=== PATIENT | female | born 1970 | race Caucasian/White ===

== ENCOUNTER → 2018-08-07 14:00 | Outpatient (CLI) | payer OTHER, SELFPAY ==
--- NOTE | 2018-08-07 | DI.MG.S_ITS ---
BILATERAL DIGITAL SCREENING MAMMOGRAM 3D/2D WITH CAD WITH AUGMENTATION: 08/07/2018 CLINICAL: Routine screening. Comparison is made to exams dated: 03/18/2016 mammogram - [facility] and 12/27/2012 mammogram - [facility]. The tissue of both breasts is extremely dense, which lowers the sensitivity of mammography. Current study was also evaluated with a Computer Aided Detection (CAD) system. Bilateral breast implants are stable. No significant masses, calcifications, or other findings are seen in either breast. There has been no significant interval change. IMPRESSION: NEGATIVE There is no mammographic evidence of malignancy. A 1 year screening mammogram is recommended. This exam was interpreted at Station ID: [id number]. NOTE: For mammograms, a report in lay terms will be sent to the patient. Approximately 15% of breast malignancies will not be visualized mammographically. In the management of a palpable breast mass, a negative mammogram must not discourage biopsy of a clinically suspicious lesion. Electronically Signed By: Chandan baez/harpreet:08/07/2018 18:48:25 letter sent: Normal Exam ACR BI-RADS Category 1: Negative [id number]
== END ==
PROVIDERS: PCP Family Medicine; Visit Provider Family Medicine
DX: Z12.31 Encounter for screening mammogram for malignant neoplasm of breast (principal)
CPT/HCPCS: 77063; 77067

== ENCOUNTER 2021-01-13 17:47 | Emergency (ER) | payer OTHER, SELFPAY ==
[2021-01-13] VITALS (14 sets, daily range): BP systolic 97–139; BP diastolic 63–85; PULSE 65–81; RESP 18–26; TEMP 37.3; O2SAT 96–100; BMI 19.9
--- NOTE | 2021-01-13 18:01 | DI.RAD.S_ITS ---
PROCEDURE: XR CHEST 1V INDICATIONS: chest pain TECHNIQUE: One view of the chest was acquired. COMPARISON: None. FINDINGS: Surgical changes and devices: None. Lungs and pleura: Lungs are clear. No pleural effusions or pneumothorax. Mediastinum: Mediastinal contours appear normal. Heart size is normal. Bones and chest wall: No suspicious bony lesions. Overlying soft tissues appear unremarkable. IMPRESSION: No acute cardiopulmonary abnormality. Dictated by: Devon Aceves M.D. on 01/13/2021 at 18:32 Approved by: Devon Aceves M.D. on 01/13/2021 at 18:32
[2021-01-13 18:34] LABS: Add Manual Diff / Slide Review NO; Basophils Absolute Auto 0 /uL (0-100); Basophils Percent Auto 0.7 % (0-2); Eosinophils Absolute Auto 200 /uL (0-450); Hematocrit 39.6 % (36-46); Hemoglobin 13.7 g/dL (12.0-16.0); Lymphocytes Absolute Auto 1200 /uL (1100-4500); Lymphocytes Percent Auto 22.5 % (25-40); Mean Corpuscular HGB Conc 34.6 % (30-36); Mean Corpuscular Hemoglobin 34.3 PG (26-34); Monocytes Absolute Auto 300 /uL (0-900); Monocytes Percent Auto 5.7 % (3-14); Neutrophils Absolute Auto 3800 /uL (1500-7000); Neutrophils Percent Auto 68.1 % (50-75); Platelet Count 211 X10^3/uL (150-400); Red Blood Cell Count 4.01 X10^6/uL (4.0-5.2); Red Cell Distribution Width 12.6 % (11.6-14.8); White Blood Cell Count 5.5 X10^3/uL (4.5-11.0)
[2021-01-13 18:47] LABS: Alanine Aminotransferase 39 IU/L (<35); Albumin 4.2 g/dL (3.5-5.0); Albumin Globulin Ratio 1.4 (1.0-2.8); Alkaline Phosphatase 50 U/L (38-126); Aspartate Aminotransferase 32 IU/L (14-36); BUN Creatinine Ratio 15.3 (6-22); Bilirubin Total 0.7 mg/dL (0.2-1.3); Blood Urea Nitrogen 11 mg/dL (7-17); Carbon Dioxide 29 mmol/L (22-32); Chloride 104 mmol/L (98-107); Creatine Kinase 70 U/L (30-135); Estimated Glomerular Filt Rate > 60.0 mL/min (>60); Globulin 3.1 g/dL (1.7-4.1); Glucose 101 mg/dL (70-100); HEMOLYSIS < 15 (0-50); Lipase 160 U/L (23-300); Potassium 3.5 mmol/L (3.4-5.1); Sodium 137 mmol/L (137-145); Total Protein 7.3 g/dL (6.3-8.2)
[2021-01-13 18:53] LABS: COVID19 -Nasal RAPID Negative (Negative)
[2021-01-13 18:59] LABS: Troponin I < 0.012 ng/mL (0.01-0.034)
[2021-01-13] MEDS: IBUPROFEN 400 MG TABLET 600 MG PO (19:05)
[2021-01-13 19:19] LABS: C-Reactive Protein Quant < 0.5 mg/dL (<1.0)
[2021-01-13 19:34] LABS: Erythrocyte Sedimentation Rate 7 MM/HR (0-20)
[2021-01-13 19:51] LABS: D Dimer 4011 ng/mL (<230)
--- NOTE | 2021-01-13 20:00 | DI.CT.S_ITS ---
PROCEDURE: CT ANGIO CHEST PE PROTOCOL INDICATIONS: D-dimer 4011, ?PE TECHNIQUE: After the administration of intravenous contrast, 2 mm thick sections acquired from the pulmonary apices to the posterior costophrenic angles. 3-dimensional maximum intensity projection (MIP) coronal and sagittal reformats were then acquired through the thorax. For radiation dose reduction, the following was used: automated exposure control, adjustment of mA and/or kV according to patient size. COMPARISON: [facility], CR, XR CHEST 1V, 01/13/2021, 18:21. FINDINGS: Image quality: Excellent. Pulmonary arteries: Pulmonary arteries are normal in size, and demonstrate no intraluminal filling defects to suggest central pulmonary embolism. Lungs and pleura: There is mild biapical pleural parenchymal scarring. No acute pulmonary consolidation is seen. No pleural effusions or pneumothorax. Central and peripheral airways are patent. Mediastinum: Heart size is normal, without pericardial effusion. No mediastinal or hilar adenopathy. Thoracic aorta is normal in caliber and enhancement. Esophagus is normal in caliber, without hiatal hernia. Bones and chest wall: Bilateral breast implants are present. No suspicious bony lesions. Ribs and thoracic spine appear intact throughout. A few hypodense nodules are seen in both lobes of the thyroid and there is a single coarse calcification. No dedicated follow-up imaging is recommended based on ACR white paper guidelines. No axillary or supraclavicular adenopathy. Abdomen: Visualized upper abdominal solid organs appear normal in the early arterial phase of enhancement. IMPRESSION: No acute pulmonary embolus. No acute abnormality is seen in the chest. Dictated by: Devon Aceves M.D. on 01/13/2021 at 21:24 Approved by: Devon Aceves M.D. on 01/13/2021 at 21:28
--- NOTE | 2021-01-13 20:06 | ED.CHESTPAIN ---
HPI - Chest Pain <Char Saleh PA-C - Last Filed: 01/13/21 20:30> General Chief Complaint: Chest Pain Stated Complaint: sharp chest pain, difficulty breathing Time Seen by Provider: 01/13/21 18:40 Source: patient and family Mode of arrival: Ambulatory Limitations: no limitations History of Present Illness HPI narrative: 50-year-old female with no reported past medical history presents to the ED with 1 day of pleuritic left-sided chest pain. Patient states that her left-sided chest pain started about 2:30 this afternoon very suddenly. Pain is exacerbated by movement and by inspiration. Pain does not radiate. Describes pain as sharp. Endorses plane travel from [place] to [place] yesterday. Denies leg swelling, redness. Denies prior history of DVTs, denies taking exogenous estrogen. Patient is not yet menopausal. Denies fever, chills, shortness of breath, nausea, vomiting, abdominal pain, lightheadedness, dizziness, syncope, dysuria. Related Data Previous Rx's Medication Instructions Recorded oxycodone-acetaminophen 5 mg-325 1 tab PO Q6H PRN #15 tab 01/13/21 mg tablet Allergies Allergy/AdvReac Type Severity Reaction Status Date / Time No Known Drug Allergies Allergy Verified 01/13/21 17:52 Review of Systems <Char Saleh PA-C - Last Filed: 01/13/21 20:30> Constitutional Constitutional: Denies chills, Denies fatigue, Denies fever(s), Denies frequent falls, Denies lethargy and Denies weakness Eyes Eyes: Denies change in vision, Denies eye discharge, Denies irritation and Denies loss of vision ENT Ears, Nose, Mouth, and Throat: Denies change in voice, Denies dizziness, Denies neck pain, Denies sore throat and Denies throat swelling Cardiovascular Cardiovascular: Reports chest pain, Denies irregular heart rhythm, Denies lightheadedness, Denies palpitations, Denies dyspnea, Denies dyspnea on exertion and Denies orthopnea Comments: Chest pain that is left-sided, pleuritic Respiratory Respiratory: Denies cough, Denies dyspnea, Denies dyspnea on exertion and Denies wheezing Gastrointestinal Gastrointestinal: Denies abdominal pain, Denies change in bowel habits, Denies diarrhea, Denies nausea and Denies vomiting Musculoskeletal Musculoskeletal: Denies neck pain and Denies numbness Comments: No leg swelling, pain, redness Integumentary/Breasts Skin/Breast: Denies pruritus, Denies erythema, Denies rash and Denies wounds Neurologic Neurologic: Denies behavioral changes, Denies confusion, Denies dizziness, Denies frequent falls, Denies loss of vision, Denies numbness and Denies weakness Psychiatric Psychiatric: Denies anxiety, Denies behavioral changes, Denies confusion, Denies depression, Denies homicidal ideation and Denies suicidal ideation Endocrine Endocrine: Denies fatigue, Denies flushing and Denies palpitations Hematologic/Lymphatic Hematologic/Lymphatic: Denies easy bruising Allergic/Immunologic Allergic/Immunologic: Denies urticaria, Denies throat swelling and Denies wheezing Patient History <Char Saleh PA-C - Last Filed: 01/13/21 20:30> Surgical History History of breast augmentation Status post arthroscopy Status post laparoscopic cholecystectomy Family History Father Age: 74 Early onset Alzheimer's disease with behavioral disturbance Grandmother Cancer Grandfather Diabetes mellitus Social History Smoking Status: Never smoker Smoking Status: Never smoker Substance Use Type: does not use Exam <Char Saleh PA-C - Last Filed: 01/13/21 20:30> Initial Vital Signs Initial Vital Signs: Vital Signs Temperature 99.1 F 01/13/21 17:53 Pulse Rate 81 01/13/21 17:53 Respiratory Rate 18 01/13/21 17:53 Blood Pressure 139/85 01/13/21 17:53 Pulse Oximetry 100 01/13/21 17:53 Const General: cooperative HENMT Head: normocephalic and atraumatic Ears: external ears normal and TM's normal bilaterally Nose: external nose normal and No nasal discharge Face and sinus: sinuses nontender, face symmetric, no sinus tenderness and No dry mucous membranes Mouth: oral mucosae normal and moist mucous membranes Teeth and gingiva: dentition normal Throat: tonsils normal and uvula midline Eyes General: appearance normal, both eyes and all related structures Eyelids: eyelids normal Conjunctivae: conjunctivae normal Sclera: sclerae normal Pupils: PERRL EOM: EOM intact bilaterally Neck Neck: normal visual inspection, trachea midline, No lymphadenopathy, No midline deformity and No JVD Lymphatic: No lymphedema Chest Chest: normal inspection of the chest Resp Effort & Inspection: normal respiratory effort, able to speak in complete sentences, no respiratory distress and no use of accessory muscles Auscultation: clear to auscultation bilaterally, no rales, no rhonchi and no wheezes Cardio Rate: regular rate Rhythm: regular rhythm Heart Sounds: no click, no gallops, no murmurs and no rubs Pulses: normal peripheral pulses Other: Left-sided chest wall tender to palpation. No signs of trauma, bruising. GI Inspection: non-distended Palpation: soft, no hepatosplenomegaly, No guarding, No pulsatile mass and No tender Auscultation: normal bowel sounds Back/Spine/Pelvis Back: No CVA tenderness Cervical Spine: cervical ROM normal and No pain with cervical ROM Thoracic/Lumbar Spine: thoracic and lumbar spine normal to inspection Skin General: no rashes or lesions noted, No jaundice and No petechiae Neuro General: patient alert, patient oriented x3, gait normal and no focal motor deficits Speech: speech normal Extrem General: full ROM, no clubbing, cyanosis or edema, no pedal edema and no calf tenderness Psych Appearance: well kempt Mental Status: mental status grossly normal Attitude: cooperative Thought Content: normal and suicidality Judgment: judgment good <Yashira Dubois MD - Last Filed: 01/13/21 23:08> Initial Vital Signs Initial Vital Signs: Vital Signs Temperature 99.1 F 01/13/21 17:53 Pulse Rate 81 01/13/21 17:53 Respiratory Rate 18 01/13/21 17:53 Blood Pressure 139/85 01/13/21 17:53 Pulse Oximetry 100 01/13/21 17:53 Course <Char Saleh PA-C - Last Filed: 01/13/21 20:30> Course Course Narrative: D-dimer elevated to 4011. CT PE ordered. Patient is stable, SpO2 99% on room air Orders Ordered: ED Orders 01/13/21 18:01 XR chest 1V Stat EKG-12 Lead Stat 01/13/21 18:25 C-Reactive Protein Quant Stat Complete Blood Count AUTO DIFF Stat Comprehensive Metabolic Panel Stat Erythrocyte Sedimentation Rate Stat Lipase Stat Troponin & CK Cardiac Panel Stat 01/13/21 18:30 COVID19 -Nasal swab/Pre-Proc Stat 01/13/21 19:15 D Dimer Stat 01/13/21 20:00 CT angio chest PE protocol Stat Discontinued Medications Ibuprofen (Ibuprofen 400 Mg Tablet) 600 mg PO NOW ONE Stop: 01/13/21 18:54 Last Admin: 01/13/21 19:05 Dose: 600 mg Documented by: GLADIS Morphine Sulfate (Morphine 2 Mg/Ml Inj) 4 mg IV NOW ONE Stop: 01/13/21 20:27 Last Admin: 01/13/21 20:50 Dose: 4 mg Documented by: GLADIS Vital Signs Vital signs: Vital Signs - 8 hr 01/13/21 17:53 01/13/21 18:36 01/13/21 18:44 Temperature 99.1 F Pulse Rate 81 71 71 Respiratory Rate 18 21 24 Blood Pressure 139/85 105/68 105/68 Pulse Oximetry 100 100 100 01/13/21 19:00 01/13/21 19:30 01/13/21 20:00 Temperature Pulse Rate 74 70 67 Respiratory Rate 26 H 20 18 Blood Pressure 114/74 100/66 99/67 Pulse Oximetry 100 100 100 <Yashira Dubois MD - Last Filed: 01/13/21 23:08> Orders Ordered: ED Orders 01/13/21 18:01 XR chest 1V Stat EKG-12 Lead Stat 01/13/21 18:25 C-Reactive Protein Quant Stat Complete Blood Count AUTO DIFF Stat Comprehensive Metabolic Panel Stat Erythrocyte Sedimentation Rate Stat Lipase Stat Troponin & CK Cardiac Panel Stat 01/13/21 18:30 COVID19 -Nasal swab/Pre-Proc Stat 01/13/21 19:15 D Dimer Stat 01/13/21 20:00 CT angio chest PE protocol Stat Discontinued Medications Ibuprofen (Ibuprofen 400 Mg Tablet) 600 mg PO NOW ONE Stop: 01/13/21 18:54 Last Admin: 01/13/21 19:05 Dose: 600 mg Documented by: GLADIS Morphine Sulfate (Morphine 2 Mg/Ml Inj) 4 mg IV NOW ONE Stop: 01/13/21 20:27 Last Admin: 01/13/21 20:50 Dose: 4 mg Documented by: GLADIS Vital Signs Vital signs: Vital Signs - 8 hr 01/13/21 17:53 01/13/21 18:36 01/13/21 18:44 Temperature 99.1 F Pulse Rate 81 71 71 Respiratory Rate 18 21 24 Blood Pressure 139/85 105/68 105/68 Pulse Oximetry 100 100 100 01/13/21 19:00 01/13/21 19:30 01/13/21 20:00 Temperature Pulse Rate 74 70 67 Respiratory Rate 26 H 20 18 Blood Pressure 114/74 100/66 99/67 Pulse Oximetry 100 100 100 MDM - Chest Pain <Char Saleh PA-C - Last Filed: 01/13/21 20:30> Lab Data Lab results narrative: D-dimer elevated. Trop normal. all other labs WNL. Result diagrams: 01/13/21 18:25 01/13/21 18:25 Labs: Lab Results 01/13/21 01/13/21 01/13/21 Range/Units 18:25 18:25 18:25 WBC 5.5 (4.5-11.0) X10^3/uL RBC 4.01 (4.0-5.2) X10^6/uL Hgb 13.7 (12.0-16.0) g/dL Hct 39.6 (36-46) % MCV 99.0 (80-100) fL MCH 34.3 H (26-34) PG MCHC 34.6 (30-36) % RDW 12.6 (11.6-14.8) % Plt Count 211 (150-400) X10^3/uL Neut % (Auto) 68.1 (50-75) % Lymph % (Auto) 22.5 L (25-40) % [place] % (Auto) 5.7 (3-14) % Eos % (Auto) 3.0 (2-4) % Baso % (Auto) 0.7 (0-2) % Neut # (Auto) 3800 (1193-9958) /uL Lymph # (Auto) 1200 (2954-0895) /uL [place] # (Auto) 300 (0-900) /uL Eos # (Auto) 200 (0-450) /uL Baso # (Auto) 0 (0-100) /uL ESR 7 (0-20) MM/HR D-Dimer (<230) ng/mL Sodium 137 (137-145) mmol/L Potassium 3.5 (3.4-5.1) mmol/L Chloride 104 (98-107) mmol/L Carbon Dioxide 29 (22-32) mmol/L BUN 11 (7-17) mg/dL Creatinine 0.72 (0.52-1.04) mg/dL Estimated GFR > 60.0 (>60) mL/min BUN/Creatinine Ratio 15.3 (6-22) Glucose 101 H (70-100) mg/dL Calcium 9.0 (8.4-10.2) mg/dL Total Bilirubin 0.7 (0.2-1.3) mg/dL AST 32 (14-36) IU/L ALT 39 H (<35) IU/L Alkaline Phosphatase 50 (38-126) U/L Total Creatine Kinase 70 (30-135) U/L CK-MB (CK-2) TNP CK-MB (CK-2) Rel Index TNP Troponin I < 0.012 (0.01-0.034) ng/mL C-Reactive Protein (<1.0) mg/dL Total Protein 7.3 (6.3-8.2) g/dL Albumin 4.2 (3.5-5.0) g/dL Globulin 3.1 (1.7-4.1) g/dL Albumin/Globulin Ratio 1.4 (1.0-2.8) Lipase 160 (23-300) U/L SARS-CoV-2 (PCR) (Negative) 01/13/21 01/13/21 01/13/21 Range/Units 18:25 18:30 19:15 WBC (4.5-11.0) X10^3/uL RBC (4.0-5.2) X10^6/uL Hgb (12.0-16.0) g/dL Hct (36-46) % MCV (80-100) fL MCH (26-34) PG MCHC (30-36) % RDW (11.6-14.8) % Plt Count (150-400) X10^3/uL Neut % (Auto) (50-75) % Lymph % (Auto) (25-40) % [place] % (Auto) (3-14) % Eos % (Auto) (2-4) % Baso % (Auto) (0-2) % Neut # (Auto) (3410-6879) /uL Lymph # (Auto) (4876-7626) /uL [place] # (Auto) (0-900) /uL Eos # (Auto) (0-450) /uL Baso # (Auto) (0-100) /uL ESR (0-20) MM/HR D-Dimer 4011 H (<230) ng/mL Sodium (137-145) mmol/L Potassium (3.4-5.1) mmol/L Chloride (98-107) mmol/L Carbon Dioxide (22-32) mmol/L BUN (7-17) mg/dL Creatinine (0.52-1.04) mg/dL Estimated GFR (>60) mL/min BUN/Creatinine Ratio (6-22) Glucose (70-100) mg/dL Calcium (8.4-10.2) mg/dL Total Bilirubin (0.2-1.3) mg/dL AST (14-36) IU/L ALT (<35) IU/L Alkaline Phosphatase (38-126) U/L Total Creatine Kinase (30-135) U/L CK-MB (CK-2) CK-MB (CK-2) Rel Index Troponin I (0.01-0.034) ng/mL C-Reactive Protein < 0.5 (<1.0) mg/dL Total Protein (6.3-8.2) g/dL Albumin (3.5-5.0) g/dL Globulin (1.7-4.1) g/dL Albumin/Globulin Ratio (1.0-2.8) Lipase (23-300) U/L SARS-CoV-2 (PCR) Negative (Negative) Imaging Data Chest x-ray: Radiologist's Impression: PROCEDURE: XR CHEST 1V INDICATIONS: chest pain TECHNIQUE: One view of the chest was acquired. COMPARISON: None. FINDINGS: Surgical changes and devices: None. Lungs and pleura: Lungs are clear. No pleural effusions or pneumothorax. Mediastinum: Mediastinal contours appear normal. Heart size is normal. Bones and chest wall: No suspicious bony lesions. Overlying soft tissues appear unremarkable. IMPRESSION: No acute cardiopulmonary abnormality. Dictated by: Devon Aceves M.D. on 01/13/2021 at 18:32 Approved by: Devon Aceves M.D. on 01/13/2021 at 18:32 ECG Data Interpretation: NSR, no ST-T changes, no axis deviation. [facility] Narrative Medical decision making narrative: 50-year-old female with no reported past medical history presents to the ED with 1 day of pleuritic left-sided chest pain. Concern for pulmonary embolism versus pneumonia versus pericarditis versus musculoskeletal pain versus ACS. Will order labs, EKG, chest x-ray, troponin, D-dimer. Will order CT PE if dimer positive. Will reassess. Dispo dependent on results of workup. <Yashira Dubois MD - Last Filed: 01/13/21 23:08> Lab Data Labs: Lab Results 01/13/21 01/13/21 01/13/21 Range/Units 18:25 18:25 18:25 WBC 5.5 (4.5-11.0) X10^3/uL RBC 4.01 (4.0-5.2) X10^6/uL Hgb 13.7 (12.0-16.0) g/dL Hct 39.6 (36-46) % MCV 99.0 (80-100) fL MCH 34.3 H (26-34) PG MCHC 34.6 (30-36) % RDW 12.6 (11.6-14.8) % Plt Count 211 (150-400) X10^3/uL Neut % (Auto) 68.1 (50-75) % Lymph % (Auto) 22.5 L (25-40) % [place] % (Auto) 5.7 (3-14) % Eos % (Auto) 3.0 (2-4) % Baso % (Auto) 0.7 (0-2) % Neut # (Auto) 3800 (7208-4524) /uL Lymph # (Auto) 1200 (7749-8628) /uL [place] # (Auto) 300 (0-900) /uL Eos # (Auto) 200 (0-450) /uL Baso # (Auto) 0 (0-100) /uL ESR 7 (0-20) MM/HR D-Dimer (<230) ng/mL Sodium 137 (137-145) mmol/L Potassium 3.5 (3.4-5.1) mmol/L Chloride 104 (98-107) mmol/L Carbon Dioxide 29 (22-32) mmol/L BUN 11 (7-17) mg/dL Creatinine 0.72 (0.52-1.04) mg/dL Estimated GFR > 60.0 (>60) mL/min BUN/Creatinine Ratio 15.3 (6-22) Glucose 101 H (70-100) mg/dL Calcium 9.0 (8.4-10.2) mg/dL Total Bilirubin 0.7 (0.2-1.3) mg/dL AST 32 (14-36) IU/L ALT 39 H (<35) IU/L Alkaline Phosphatase 50 (38-126) U/L Total Creatine Kinase 70 (30-135) U/L CK-MB (CK-2) TNP CK-MB (CK-2) Rel Index TNP Troponin I < 0.012 (0.01-0.034) ng/mL C-Reactive Protein (<1.0) mg/dL Total Protein 7.3 (6.3-8.2) g/dL Albumin 4.2 (3.5-5.0) g/dL Globulin 3.1 (1.7-4.1) g/dL Albumin/Globulin Ratio 1.4 (1.0-2.8) Lipase 160 (23-300) U/L SARS-CoV-2 (PCR) (Negative) 01/13/21 01/13/21 01/13/21 Range/Units 18:25 18:30 19:15 WBC (4.5-11.0) X10^3/uL RBC (4.0-5.2) X10^6/uL Hgb (12.0-16.0) g/dL Hct (36-46) % MCV (80-100) fL MCH (26-34) PG MCHC (30-36) % RDW (11.6-14.8) % Plt Count (150-400) X10^3/uL Neut % (Auto) (50-75) % Lymph % (Auto) (25-40) % [place] % (Auto) (3-14) % Eos % (Auto) (2-4) % Baso % (Auto) (0-2) % Neut # (Auto) (4787-6305) /uL Lymph # (Auto) (0823-8022) /uL [place] # (Auto) (0-900) /uL Eos # (Auto) (0-450) /uL Baso # (Auto) (0-100) /uL ESR (0-20) MM/HR D-Dimer 4011 H (<230) ng/mL Sodium (137-145) mmol/L Potassium (3.4-5.1) mmol/L Chloride (98-107) mmol/L Carbon Dioxide (22-32) mmol/L BUN (7-17) mg/dL Creatinine (0.52-1.04) mg/dL Estimated GFR (>60) mL/min BUN/Creatinine Ratio (6-22) Glucose (70-100) mg/dL Calcium (8.4-10.2) mg/dL Total Bilirubin (0.2-1.3) mg/dL AST (14-36) IU/L ALT (<35) IU/L Alkaline Phosphatase (38-126) U/L Total Creatine Kinase (30-135) U/L CK-MB (CK-2) CK-MB (CK-2) Rel Index Troponin I (0.01-0.034) ng/mL C-Reactive Protein < 0.5 (<1.0) mg/dL Total Protein (6.3-8.2) g/dL Albumin (3.5-5.0) g/dL Globulin (1.7-4.1) g/dL Albumin/Globulin Ratio (1.0-2.8) Lipase (23-300) U/L SARS-CoV-2 (PCR) Negative (Negative) Imaging Data CT PE study: Radiologist's Impression: FINDINGS: Image quality: Excellent. Pulmonary arteries: Pulmonary arteries are normal in size, and demonstrate no intraluminal filling defects to suggest central pulmonary embolism. Lungs and pleura: There is mild biapical pleural parenchymal scarring. No acute pulmonary consolidation is seen. No pleural effusions or pneumothorax. Central and peripheral airways are patent. Mediastinum: Heart size is normal, without pericardial effusion. No mediastinal or hilar adenopathy. Thoracic aorta is normal in caliber and enhancement. Esophagus is normal in caliber, without hiatal hernia. Bones and chest wall: Bilateral breast implants are present. No suspicious bony lesions. Ribs and thoracic spine appear intact throughout. A few hypodense nodules are seen in both lobes of the thyroid and there is a single coarse calcification. No dedicated follow-up imaging is recommended based on ACR white paper guidelines. No axillary or supraclavicular adenopathy. Abdomen: Visualized upper abdominal solid organs appear normal in the early arterial phase of enhancement. IMPRESSION: No acute pulmonary embolus. No acute abnormality is seen in the chest. Dictated by: Devon Aceves M.D. on 01/13/2021 at 21:24 MDM Narrative Medical decision making narrative: 50-year-old female with no reported past medical history presents to the ED with 1 day of pleuritic left-sided chest pain. Concern for pulmonary embolism versus pneumonia versus pericarditis versus musculoskeletal pain versus ACS. Will order labs, EKG, chest x-ray, troponin, D-dimer. Will order CT PE if dimer positive. Will reassess. Dispo dependent on results of workup. Care is assumed. Patient is independently examine. Labs reviewed. CT scan of the chest does not suggest acute pathology specifically no pulmonary embolism. There is no evidence of pneumonia, COVID, pericarditis, pleural effusion pericardial effusion or fractures. Still exquisitely tender along the left sternal border with movement and with deep breathing and palpation. Most consistent with acute costochondritis. She is given Toradol and a single Percocet prior to discharge and instructions on follow-up with her primary care physician in about a week as as well as anticipatory recommendations over course of the next couple of days. Questions are answered and she is safe for home discharge Discharge Plan Departure Patient Disposition: Home Clinical Impression: Acute costochondritis Instructions: DI for Costochondritis Activity Restrictions/Additional Instructions: Thank you for coming in today The pain that your having is obviously severe. Your workup does not show any life-threatening explanations for this. Specifically, nor not have a heart attack, there is no sign of infection including COVID, you do not have a collapsed lung, any tumors or masses on the inside that her pressing out that might be causing this pain. The CT scan of your chest was also reassuring with no blood clots in your lungs. Your blood work was reassuring as well. Using 400 mg of ibuprofen (2 kwnj-eob-jcnordh pills) and 1 Tylenol every 6 hours can be very helpful in controlling pain. For severe pain using to ibuprofen and 1 Percocet can be helpful. Percocet has oxycodone it and will cause constipation. Make sure that you are using additional fiber, water and stool softeners as needed. Please schedule a follow-up appointment with Dr. Hdz in the next week and if symptoms change or worsen you are free to return to the emergency department and I am happy to re-evaluate. Prescriptions: New oxycodone-acetaminophen 5-325 mg tablet 1 tab PO Q6H PRN (Reason: pain) Qty: 15 RF: 0 Referrals: Gabriella Hdz DO [Primary Care Provider] -
[2021-01-13] MEDS: MORPHINE 2 MG/ML INJ 4 MG IV (20:50)
[2021-01-13] MEDS: KETOROLAC 30 MG/ML VIAL 15 MG IV (23:18)
[2021-01-13] MEDS: OXYCODONE/ACETAMINOPHEN 5/325 TABLET 1 TAB PO (23:18)
[2021-01-13] MEDS: OXYCODONE/APAP 5/325 PREPACK 1 BOTTLE MISC (23:19)
== END 2021-01-13 23:29 | disposition home or self-care (01) ==
PROVIDERS: Emergency Medicine; Emergency Provider Student in an Organized Health Care Education/Training Program; PCP Family Medicine
DX: M94.0 Chondrocostal junction syndrome [Tietze] (principal); R07.9 Chest pain, unspecified; R06.00 Dyspnea, unspecified; Z20.822 Contact with and (suspected) exposure to COVID-19
CPT/HCPCS: 36415; 71045; 71275; 80053; 82550; 83690; 84484; 85025; 85379; 85651; 86140; 87635; 93005; 96374; 96375; 99285; C9803; J1885; J2270; Q9967

== ENCOUNTER → 2021-04-17 09:07 | Outpatient (CLI) | payer OTHER, SELFPAY ==
[2021-04-17 10:50] LABS: COVID19 -Nasal RAPID Negative (Negative)
== END ==
PROVIDERS: PCP Family Medicine; Visit Provider Surgery
DX: Z01.812 Encounter for preprocedural laboratory examination (principal); Z20.822 Contact with and (suspected) exposure to COVID-19
CPT/HCPCS: 87635; C9803

== ENCOUNTER → 2021-04-20 08:35 | Outpatient (CLI) | payer OTHER, SELFPAY ==
[2021-04-20 10:13] LABS: Add Manual Diff / Slide Review NO; Basophils Absolute Auto 0 /uL (0-100); Basophils Percent Auto 0.6 % (0-2); Eosinophils Absolute Auto 100 /uL (0-450); Eosinophils Percent Auto 2.6 % (2-4); Hematocrit 40.7 % (36-46); Hemoglobin 14.2 g/dL (12.0-16.0); Lymphocytes Absolute Auto 900 /uL (1100-4500); Mean Corpuscular HGB Conc 34.9 % (30-36); Mean Corpuscular Hemoglobin 34.1 PG (26-34); Mean Corpuscular Volume 97.8 fL (80-100); Monocytes Absolute Auto 300 /uL (0-900); Monocytes Percent Auto 7.3 % (3-14); Neutrophils Absolute Auto 2300 /uL (1500-7000); Neutrophils Percent Auto 63.5 % (50-75); Platelet Count 217 X10^3/uL (150-400); Red Blood Cell Count 4.16 X10^6/uL (4.0-5.2); Red Cell Distribution Width 12.7 % (11.6-14.8); White Blood Cell Count 3.6 X10^3/uL (4.5-11.0)
[2021-04-20 11:08] LABS: Alanine Aminotransferase 29 IU/L (<35); Albumin 4.4 g/dL (3.5-5.0); Albumin Globulin Ratio 1.3 (1.0-2.8); Alkaline Phosphatase 42 U/L (38-126); Aspartate Aminotransferase 33 IU/L (14-36); Bilirubin Total 1.3 mg/dL (0.2-1.3); Blood Urea Nitrogen 12 mg/dL (7-17); Calcium 9.3 mg/dL (8.4-10.2); Carbon Dioxide 30 mmol/L (22-32); Chloride 102 mmol/L (98-107); Cholesterol 187 mg/dL (140-199); Estimated Glomerular Filt Rate > 60.0 mL/min (>60); Globulin 3.3 g/dL (1.7-4.1); Glucose 102 mg/dL (70-100); HDL Cholesterol 108 mg/dL (40-60); HEMOLYSIS < 15 (0-50); LDL Cholesterol Calculated 70 mg/dL (<100); Potassium 3.8 mmol/L (3.4-5.1); Sodium 138 mmol/L (137-145); Total Protein 7.7 g/dL (6.3-8.2); Triglycerides 47 mg/dL (35-150)
== END ==
PROVIDERS: PCP Family Medicine; Referring Provider Family Medicine; Visit Provider Family Medicine
DX: E78.5 Hyperlipidemia, unspecified (principal); M94.0 Chondrocostal junction syndrome [Tietze]
CPT/HCPCS: 36415; 80053; 80061; 85025

== ENCOUNTER 2021-04-20 08:36 | Day surgery (SDC) | payer OTHER, SELFPAY ==
[2021-04-20] VITALS (7 sets, daily range): BP systolic 97–106; BP diastolic 67–75; PULSE 65–72; RESP 11–16; TEMP 36.2–37.1; O2SAT 100; BMI 19.9
[2021-04-20] MEDS: LACTATED RINGERS 1,000 ML 200 ML IV (09:17)
--- NOTE | 2021-04-20 09:20 | PM.HP.1 ---
History of Present Illness History of Present Illness Date Patient Seen: 04/20/21 Time Patient Seen: 09:20 Chief complaint: SDC Narrative: The patient presents for colorectal sreening. They have never had any previous examination for such. No personal or family history of colon cancer. On further history denies any recent gastrointestinal symptoms. No nausea, vomiting, abdominal pain, loss of appetite, unexplained weight loss, change in bowel habits, diarrhea, constipation, melena, hematochezia, or bright red blood per rectum. Patient History Surgical History Anesthesia History of breast augmentation Status post arthroscopy Status post laparoscopic cholecystectomy Family & Social History Family History Father Age: 75 Early onset Alzheimer's disease with behavioral disturbance Grandmother Cancer Grandfather Diabetes mellitus Social History: household members spouse Tobacco & Substance use: Smoking Status Never smoker alcohol intake current alcohol intake frequency a few times a week Substance Use Type does not use Meds Home Medications and Allergies Allergies Allergy/AdvReac Type Severity Reaction Status Date / Time No Known Drug Allergies Allergy Verified 01/13/21 17:52 Exam Vital Signs (past 8 hours): - 04/20/21 09:02 Temperature 97.2 F L Pulse Rate 72 Respiratory Rate 16 Blood Pressure 103/67 Pulse Oximetry 100 Oxygen Delivery Method Room Air Narrative Exam Narrative: Constitutional-She is oriented to person, place and time. No apparent distress Cardiovascular- regular rate, no peripheral edema Pulmonary-unlabored respiratory effort, no audible wheezing Abdominal-soft, non-tender, non-distended Musculoskeletal-no cyanosis or clubbing Neurological-nonfocal, normal strength throughout, Skin-warm and dry Assessment & Plan Assessment and plan (1) Screening for colon cancer: Status: Acute Assessment & Plan narrative: The patient requires colorectal screening and colonoscopy is recommended. Technical details were discussed. Risks, benefits, alternatives explained. Risks including but not limited to myocardial infarction, aspiration, bleeding, pain, missed lesion, incomplete examination, need for further radiographic studies, colonic perforation, and need for major abdominal surgery were discussed. All questions were answered to their satisfaction, and they are in agreement with this plan. Time Spent With Patient Critical Care time: I spent a total of [] minutes of critical care time on this patient's care today; this time is exclusive of procedural time.
[2021-04-20] MEDS: MIDAZOLAM 5 MG/5 ML VIAL IV (09:39)
[2021-04-20] MEDS: fentaNYL 250 MCG/5 ML INJ IV (09:39)
--- NOTE | 2021-04-20 09:59 | PM.OP.COLON ---
Operative Date/Time/Diagnoses Date of procedure: 04/20/21 Time of procedure: 09:59 Pre-op diagnosis: Screening colonoscopy Post-op diagnosis: same Procedure & Clinicians Study performed: Colonoscopy Same procedure as scheduled: Yes Indications: Screening Surgeon: Willy Zhu Procedure Notes Procedure in detail: Medications: Conscious sedation using 8mg IV midazolam and 250mcg IV of fentanyl The history and physical was performed/updated and the patient is ASA class is 1. The procedure was discussed in detail with the patient. Potential risks complications including infection, bleeding, missed diagnosis, perforation, need for surgery, and were explained. Their questions were answered and informed consent was obtained. Patient was brought to the procedure room and placed standard monitoring equipment. The patient's vital signs were monitored continuously throughout the entire procedure. Prior to starting time-out was performed. The patient was placed in the left lateral recumbent position. Procedural sedation was administered. Examination began with a thorough inspection of the perianal area there was no evidence of fissures, fistulae, external hemorrhoids or cutaneous malignancy. The colonoscopy scope was then placed into the anal canal and was advanced to the cecum, which was identified by the ileocecal valve, the appendiceal orifice and the confluence of the taenia. The scope was then slowly withdrawn examining colon thoroughly in all directions, irrigating it of any residual stool. FINDINGS 1. No masses or polyps 2. Sigmoid diverticulosis The patient tolerated the procedure well. They will be discharged once criteria are met. The prep was of good/excellent quality. The withdrawl time was 7 minutes. The sedation time was 29 minutes. Specimen(s): none sent Complications: none Impression: Normal colonoscopy Post-procedure Recommendations: Colonoscopy in 10 years Disposition: same day surgery
--- NOTE | 2021-04-20 10:25 | SUR.PHASEI ---
1000 hrs: Pt arrives PACU breathing unassisted s/p colonoscopy. Report recieved, questions answered.
== END 2021-04-20 10:54 | disposition home or self-care (01) ==
PROVIDERS: PCP Family Medicine; Referring Provider Surgery; Visit Provider Surgery
PROC: 0DJD8ZZ Inspection of Lower Intestinal Tract, Via Natural or Artificial Opening Endoscopic (ICD-10-PCS; CPT 45378; principal; 2021-04-20 10:00)
DX: Z12.11 Encounter for screening for malignant neoplasm of colon (principal); K57.30 Diverticulosis of large intestine without perforation or abscess without bleeding; E78.5 Hyperlipidemia, unspecified; M94.0 Chondrocostal junction syndrome [Tietze]
CPT/HCPCS: 45378; 36415; 80053; 80061; 85025; 99152; 99153; J2250; J3010

== ENCOUNTER → 2022-08-27 14:05 | Outpatient (CLI) | payer OTHER, SELFPAY ==
--- NOTE | 2022-08-27 | DI.MG.S_ITS ---
BILATERAL DIGITAL SCREENING MAMMOGRAM 3D/2D WITH CAD WITH AUGMENTATION: 08/27/2022 CLINICAL: Patient presents for routine screening. S/P bilateral augmentation. Comparison is made to exams dated: 08/07/2018 mammogram, 03/18/2016 mammogram - [facility], and 12/27/2012 mamm[address] - [facility]. Both breasts are extremely dense, which lowers the sensitivity of mammography (category d />75% glandular tissue). Current study was also evaluated with a Computer Aided Detection (CAD) system. Bilateral breast implants are stable. No significant masses, calcifications, or other findings are seen in either breast. There has been no significant interval change. IMPRESSION: NEGATIVE There is no mammographic evidence of malignancy. A 1 year screening mammogram is recommended. Based on the Tyrer Cuzick model (a risk assessment model) the patient's lifetime risk is 17.0% and her 10 year risk is 4.5%. According to the ACR, ACS, and NCCN guidelines, an annual breast MRI exam along with mammogram is recommended if the patient's lifetime risk is 20% or greater. This exam was interpreted at Station ID: [id number]. NOTE: For mammograms, a report in lay terms will be sent to the patient. Approximately 15% of breast malignancies will not be visualized mammographically. In the management of a palpable breast mass, a negative mammogram must not discourage biopsy of a clinically suspicious lesion. Electronically Signed By: Juan Antonio rubio/harpreet:08/27/2022 15:22:54 letter sent: Normal Exam ACR BI-RADS Category 1: Negative [id number]
== END ==
PROVIDERS: PCP Family Medicine; Referring Provider Family Medicine; Visit Provider Family Medicine
DX: Z12.31 Encounter for screening mammogram for malignant neoplasm of breast (principal); Z98.82 Breast implant status
CPT/HCPCS: 77063; 77067

== ENCOUNTER → 2022-09-28 08:27 | Outpatient (CLI) | payer OTHER, SELFPAY ==
[2022-09-28 09:31] LABS: Hematocrit 38.7 % (36-46); Hemoglobin 13.7 g/dL (12.0-16.0); Mean Corpuscular HGB Conc 35.4 % (30-36); Mean Corpuscular Hemoglobin 34.3 PG (26-34); Mean Corpuscular Volume 96.9 fL (80-100); Platelet Count 206 X10^3/uL (150-400); Red Cell Distribution Width 12.9 % (11.6-14.8); White Blood Cell Count 3.2 X10^3/uL (4.5-11.0)
[2022-09-28 09:47] LABS: Alanine Aminotransferase 20 IU/L (<35); Albumin 4.1 g/dL (3.5-5.0); Albumin Globulin Ratio 1.3 (1.0-2.8); Alkaline Phosphatase 48 U/L (38-126); Aspartate Aminotransferase 23 IU/L (14-36); BUN Creatinine Ratio 18.3 (6-22); Bilirubin Total 0.8 mg/dL (0.2-1.3); Blood Urea Nitrogen 13 mg/dL (7-17); Carbon Dioxide 28 mmol/L (22-32); Chloride 105 mmol/L (98-107); Estimated Glomerular Filt Rate > 60 mL/min (>60); Globulin 3.1 g/dL (1.7-4.1); Glucose 104 mg/dL (70-100); HEMOLYSIS < 15 (0-50); Potassium 4.2 mmol/L (3.4-5.1); Sodium 138 mmol/L (137-145); Total Protein 7.2 g/dL (6.3-8.2)
[2022-09-28 10:09] LABS: Erythrocyte Sedimentation Rate 7 MM/HR (0-20)
[2022-09-28 10:32] LABS: Vitamin B12 Reflex MMA if <400 350 pg/mL (239-931)
[2022-09-28 10:33] LABS: TSH w/ Reflex to FT4 1.11 uIU/mL (0.47-4.68)
--- NOTE | 2022-09-28 14:49 | DI.RAD.S_ITS ---
PROCEDURE: XR HAND RT MIN 3V INDICATIONS: bilateral hand and feet swelling TECHNIQUE: 3 views of the hand(s) acquired. COMPARISON: None. FINDINGS: Bones: No fractures or dislocations. Carpal bones are normally aligned. No suspicious bony lesions. No osseous erosions. Soft tissues: No suspicious soft tissue calcifications. IMPRESSION: No osseous erosions. No osseous lesion. If symptoms and/or clinical suspicion for pathology persists, further assessment with advanced imaging (e.g. CT, MRI or bone scan) should be considered. Dictated by: Soco Atwood MD, PhD on 09/28/2022 at 15:47 Approved by: Soco Atwood MD, PhD on 09/28/2022 at 15:48
--- NOTE | 2022-09-28 14:49 | DI.RAD.S_ITS ---
PROCEDURE: XR HAND LT MIN 3V INDICATIONS: bilateral hand and feet swelling TECHNIQUE: 3 views of the hand(s) acquired. COMPARISON: None. FINDINGS: Bones: No fractures or dislocations. Carpal bones are normally aligned. No suspicious bony lesions. No osseous erosions. Soft tissues: No suspicious soft tissue calcifications. IMPRESSION: No osseous erosions. No acute osseous lesion. If symptoms and/or clinical suspicion for pathology persists, further assessment with advanced imaging (e.g. CT, MRI or bone scan) should be considered. Dictated by: Soco Atwood MD, PhD on 09/28/2022 at 15:45 Approved by: Soco Atwood MD, PhD on 09/28/2022 at 15:46
--- NOTE | 2022-09-28 14:49 | DI.RAD.S_ITS ---
PROCEDURE: XR FOOT RT MIN 3V INDICATIONS: bilateral hand and feet swelling TECHNIQUE: 3 views of the foot were acquired. COMPARISON: None. FINDINGS: Bones: No fractures or dislocations. No suspicious bony lesions. No osseous erosions. Mild midfoot osteoarthritis. Moderate-sized dorsal calcaneal bone spur. Soft tissues: No tibiotalar joint effusion. Achilles tendon appears normal. IMPRESSION: No osseous erosions. Mild midfoot osteoarthritis. Calcaneal bone spur. Dictated by: Soco Atwood MD, PhD on 09/28/2022 at 15:46 Approved by: Soco Atwood MD, PhD on 09/28/2022 at 15:47
--- NOTE | 2022-09-28 14:49 | DI.RAD.S_ITS ---
PROCEDURE: XR FOOT LT MIN 3V INDICATIONS: bilateral hand and feet swelling TECHNIQUE: 3 views of the foot were acquired. COMPARISON: None. FINDINGS: Bones: No fractures or dislocations. No suspicious bony lesions. No osseous erosions. Mild midfoot osteoarthritis. Small dorsal calcaneal bone spur. Soft tissues: No tibiotalar joint effusion. Achilles tendon appears normal. No soft tissue gas. IMPRESSION: No osseous erosions. Mild midfoot osteoarthritis. Small calcaneal bone spur. Dictated by: Soco Atwood MD, PhD on 09/28/2022 at 15:44 Approved by: Soco Atwood MD, PhD on 09/28/2022 at 15:45
[2022-09-28 14:57] LABS: C-Reactive Protein Quant 0.5 mg/dL (<1.0)
[2022-09-28 15:08] LABS: Rheumatoid Factor 160.1 IU/mL (<12.0)
[2022-10-03 18:22] LABS: ANA Screen, IFA Negative (.)
[2022-10-06 05:12] LABS: Methylmalonic Acid,Serum 140 nmol/L (0-378)
== END ==
PROVIDERS: PCP Family Medicine; Referring Provider Nurse Practitioner Family; Visit Provider Nurse Practitioner Family
DX: R20.0 Anesthesia of skin (principal); R20.2 Paresthesia of skin; R53.1 Weakness; M25.50 Pain in unspecified joint; D72.810 Lymphocytopenia; M79.89 Other specified soft tissue disorders; R61 Generalized hyperhidrosis; M06.9 Rheumatoid arthritis, unspecified; M19.071 Primary osteoarthritis, right ankle and foot; M77.31 Calcaneal spur, right foot; M19.072 Primary osteoarthritis, left ankle and foot; M77.32 Calcaneal spur, left foot
CPT/HCPCS: 36415; 73130; 73630; 80053; 82607; 83921; 84443; 85027; 85651; 86038; 86140; 86200; 86430

== ENCOUNTER → 2022-10-26 12:00 | Outpatient (CLI) | payer OTHER, SELFPAY ==
[2022-10-26 12:35] LABS: Add Manual Diff / Slide Review NO; Basophils Absolute Auto 0 /uL (0-100); Basophils Percent Auto 0.5 % (0-2); Eosinophils Absolute Auto 0 /uL (0-450); Eosinophils Percent Auto 0.6 % (2-4); Hematocrit 40.5 % (36-46); Hemoglobin 14.2 g/dL (12.0-16.0); Lymphocytes Absolute Auto 700 /uL (1100-4500); Lymphocytes Percent Auto 19.7 % (25-40); Mean Corpuscular Hemoglobin 34.1 PG (26-34); Mean Corpuscular Volume 97.5 fL (80-100); Monocytes Absolute Auto 100 /uL (0-900); Neutrophils Absolute Auto 2500 /uL (1500-7000); Neutrophils Percent Auto 75.2 % (50-75); Platelet Count 214 X10^3/uL (150-400); Red Blood Cell Count 4.16 X10^6/uL (4.0-5.2); Red Cell Distribution Width 13.1 % (11.6-14.8); White Blood Cell Count 3.4 X10^3/uL (4.5-11.0)
[2022-10-28 10:55] LABS: CCP Antibodies IgG/IgA >250 units (0-19)
== END ==
PROVIDERS: PCP Family Medicine; Referring Provider Family Medicine; Visit Provider Family Medicine
DX: D72.810 Lymphocytopenia (principal); M06.9 Rheumatoid arthritis, unspecified
CPT/HCPCS: 36415; 85025; 86200

== ENCOUNTER → 2023-02-22 16:05 | Outpatient (CLI) | payer OTHER, SELFPAY ==
[2023-02-22 17:21] LABS: Add Manual Diff / Slide Review NO; Basophils Absolute Auto 0 /uL (0-100); Basophils Percent Auto 0.5 % (0-2); Eosinophils Absolute Auto 100 /uL (0-450); Eosinophils Percent Auto 1.9 % (2-4); Hematocrit 39.3 % (36-46); Hemoglobin 13.8 g/dL (12.0-16.0); Lymphocytes Absolute Auto 1400 /uL (1100-4500); Lymphocytes Percent Auto 35.1 % (25-40); Mean Corpuscular HGB Conc 35.1 % (30-36); Mean Corpuscular Hemoglobin 34.9 PG (26-34); Mean Corpuscular Volume 99.4 fL (80-100); Monocytes Absolute Auto 200 /uL (0-900); Monocytes Percent Auto 5.7 % (3-14); Neutrophils Absolute Auto 2300 /uL (1500-7000); Neutrophils Percent Auto 56.8 % (50-75); Platelet Count 220 X10^3/uL (150-400); Red Blood Cell Count 3.95 X10^6/uL (4.0-5.2); White Blood Cell Count 4.1 X10^3/uL (4.5-11.0)
[2023-02-22 17:47] LABS: Alanine Aminotransferase 24 IU/L (<35); Albumin 4.5 g/dL (3.5-5.0); Albumin Globulin Ratio 1.4 (1.0-2.8); Alkaline Phosphatase 55 U/L (38-126); Aspartate Aminotransferase 28 IU/L (14-36); BUN Creatinine Ratio 20.9 (6-22); Bilirubin Total 0.6 mg/dL (0.2-1.3); Blood Urea Nitrogen 18 mg/dL (7-17); C-Reactive Protein Quant < 0.5 mg/dL (<1.0); Calcium 9.8 mg/dL (8.4-10.2); Carbon Dioxide 29 mmol/L (22-32); Chloride 102 mmol/L (98-107); Estimated Glomerular Filt Rate > 60 mL/min (>60); Globulin 3.2 g/dL (1.7-4.1); Glucose 89 mg/dL (70-100); HEMOLYSIS 16 (0-50); Potassium 3.8 mmol/L (3.4-5.1); Sodium 138 mmol/L (137-145); Total Protein 7.7 g/dL (6.3-8.2)
[2023-02-22 18:59] LABS: Erythrocyte Sedimentation Rate 7 MM/HR (0-20)
== END ==
PROVIDERS: PCP Family Medicine; Referring Provider Internal Medicine Rheumatology; Visit Provider Internal Medicine Rheumatology
DX: M05.79 Rheumatoid arthritis with rheumatoid factor of multiple sites without organ or systems involvement (principal); Z79.899 Other long term (current) drug therapy
CPT/HCPCS: 36415; 80053; 85025; 85651; 86140

== ENCOUNTER → 2023-03-15 15:47 | Outpatient (CLI) | payer OTHER, SELFPAY ==
[2023-03-17 19:07] LABS: QuantiFERON Mitogen Value >10.00 IU/mL (.); QuantiFERON TB Gold Plus Negative (Negative); QuantiFERON TB1 Ag Value 0.01 IU/mL (.); QuantiFERON TB2 Ag Value 0.01 IU/mL (.)
== END ==
PROVIDERS: PCP Family Medicine; Referring Provider Internal Medicine Rheumatology; Visit Provider Internal Medicine Rheumatology
DX: M05.79 Rheumatoid arthritis with rheumatoid factor of multiple sites without organ or systems involvement (principal)
CPT/HCPCS: 36415; 86480

== ENCOUNTER 2023-10-21 01:33 | Emergency (ER) | payer OTHER, SELFPAY ==
[2023-10-21] VITALS (14 sets, daily range): BP systolic 106–140; BP diastolic 59–79; PULSE 59–84; RESP 12–32; TEMP 36.6–36.8; O2SAT 97–100; BMI 20.7
[2023-10-21 02:46] LABS: Add Manual Diff / Slide Review NO; Basophils Absolute Auto 100 /uL (0-100); Basophils Percent Auto 0.6 % (0-2); Eosinophils Absolute Auto 0 /uL (0-450); Eosinophils Percent Auto 0.4 % (2-4); Hematocrit 43.1 % (36-46); Hemoglobin 15.2 g/dL (12.0-16.0); Lymphocytes Absolute Auto 1600 /uL (1100-4500); Lymphocytes Percent Auto 17.5 % (25-40); Mean Corpuscular HGB Conc 35.2 % (30-36); Mean Corpuscular Hemoglobin 33.7 PG (26-34); Mean Corpuscular Volume 95.7 fL (80-100); Monocytes Absolute Auto 400 /uL (0-900); Monocytes Percent Auto 4.3 % (3-14); Neutrophils Absolute Auto 7100 /uL (1500-7000); Neutrophils Percent Auto 77.2 % (50-75); Platelet Count 294 X10^3/uL (150-400); Red Cell Distribution Width 13.5 % (11.6-14.8); White Blood Cell Count 9.2 X10^3/uL (4.5-11.0)
[2023-10-21 02:54] LABS: Alanine Aminotransferase 25 IU/L (<35); Albumin 4.8 g/dL (3.5-5.0); Albumin Globulin Ratio 1.5 (1.0-2.8); Alkaline Phosphatase 65 U/L (38-126); Aspartate Aminotransferase 31 IU/L (14-36); Bilirubin Total 1.4 mg/dL (0.2-1.3); Blood Urea Nitrogen 23 mg/dL (7-17); Carbon Dioxide 22 mmol/L (22-32); Chloride 107 mmol/L (98-107); Estimated Glomerular Filt Rate > 60 mL/min (>60); Globulin 3.1 g/dL (1.7-4.1); Glucose 143 mg/dL (70-100); HEMOLYSIS 30 (0-50); Lipase 132 U/L (23-300); Sodium 138 mmol/L (137-145); Total Protein 7.9 g/dL (6.3-8.2)
--- NOTE | 2023-10-21 03:05 | ED_ITS ---
HPI - General Adult General Chief complaint: Abdominal Pain Stated complaint: sob, abd pain, back pain Time Seen by Provider: 10/21/23 03:05 Source: patient and family Mode of arrival: Ambulatory History of Present Illness HPI narrative: Otherwise healthy 53-year-old woman with left-sided flank pain starting at 5:00 p.m. last night. Getting progressively worse with nausea secondary to the pain. As the pain has progressed she is now noting she is having tingling in both upper extremities and also complains of radicular pain down the right leg. She states that she is having some dysuria but no frequency and no hematuria. She does have rheumatoid arthritis and is on Enbrel. He has not been having fevers, does not describe significant constipation. No chest pain palpitations or headache. No recent upper respiratory infections Related Data Home Medications Medication Instructions Recorded Confirmed etanercept 50 mg/mL (1 mL) 50 mg SUBCUT QWEEK 06/02/23 07/28/23 subcutaneous syringe (Enbrel) Previous Rx's Medication Instructions Recorded progesterone micronized 100 mg 100 mg PO QAM #30 caps 06/02/23 capsule estradiol 0.0375 mg/24 hr 1 patch transdermal 2XW #24 ea 07/19/23 semiweekly transdermal patch oxycodone-acetaminophen 5 mg-325 1 tab PO Q6H PRN pain #10 tabs 10/21/23 mg tablet Allergies Allergy/AdvReac Type Severity Reaction Status Date / Time No Known Drug Allergies Allergy Verified 07/28/23 09:33 Review of Systems Review of Systems Narrative: Pertinent positive and negative findings as per HPI Patient History Medical History Low libido Rheumatoid arthritis Lymphocytopenia Surgical History Anesthesia History of breast augmentation Status post arthroscopy Status post laparoscopic cholecystectomy Family History Father Age: 77 Early onset Alzheimer's disease with behavioral disturbance Grandmother Cancer Grandfather Diabetes mellitus Social History household members: spouse Smoking Status: Never smoker alcohol intake: current Smoking Status: Never smoker alcohol intake frequency: a few times a week Substance Use Type: does not use Exam Initial Vital Signs Initial Vital Signs: Vital Signs Temperature 98 F 10/21/23 01:55 Pulse Rate 84 10/21/23 01:55 Respiratory Rate 20 10/21/23 01:55 Blood Pressure 140/75 10/21/23 01:55 Pulse Oximetry 100 10/21/23 01:55 Oxygen Delivery Method Room Air 10/21/23 01:55 General: Healthy appearing significant distress with obvious left flank pain. HEENT: Moist mucous membranes, normal sclera with reactive pupils, Respiratory: Lungs are clear to auscultation, no wheezing no rales no rhonchi. Full and symmetrical air movement Cardiac: Regular rate and rhythm no murmurs no bruits Abdomen: Soft, nontender, good bowel tones, + left flank pain Skin: Warm and dry, no rashes Neurologic: Grossly neurologically intact with no obvious asymmetries or abnormalities Extremities: No trauma, well perfused Psych: Cooperative, appropriate insight and affect Course Orders Ordered: ED Orders 10/21/23 02:27 EKG-12 Lead Stat 10/21/23 02:35 Urine Microscopic Stat 10/21/23 02:40 Complete Blood Count AUTO DIFF Stat Comprehensive Metabolic Panel Stat Lipase Stat Ondansetron HCl (Ondansetron 4 Mg Odt) 4 mg PO NOW PRN PRN Reason: Nausea And Vomiting Ondansetron HCl (Ondansetron 4 Mg/2 Ml Inj) 4 mg IV NOW PRN PRN Reason: Nausea And Vomiting Vital Signs Vital signs: Vital Signs - 8 hr 10/21/23 01:55 Temperature 98 F Pulse Rate 84 Respiratory Rate 20 Blood Pressure 140/75 Pulse Oximetry 100 Oxygen Delivery Method Room Air Medical Decision Making Lab Data 10/21/23 02:40 10/21/23 02:40 Labs: Lab Results 10/21/23 Range/Units 02:40 WBC 9.2 (4.5-11.0) X10^3/uL RBC 4.50 (4.0-5.2) X10^6/uL Hgb 15.2 (12.0-16.0) g/dL Hct 43.1 (36-46) % MCV 95.7 (80-100) fL MCH 33.7 (26-34) PG MCHC 35.2 (30-36) % RDW 13.5 (11.6-14.8) % Plt Count 294 (150-400) X10^3/uL Neut % (Auto) 77.2 H (50-75) % Lymph % (Auto) 17.5 L (25-40) % [place] % (Auto) 4.3 (3-14) % Eos % (Auto) 0.4 L (2-4) % Baso % (Auto) 0.6 (0-2) % Neut # (Auto) 7100 H (7017-7910) /uL Lymph # (Auto) 1600 (5731-3467) /uL [place] # (Auto) 400 (0-900) /uL Eos # (Auto) 0 (0-450) /uL Baso # (Auto) 100 (0-100) /uL Sodium 138 (137-145) mmol/L Potassium 4.0 (3.4-5.1) mmol/L Chloride 107 (98-107) mmol/L Carbon Dioxide 22 (22-32) mmol/L BUN 23 H (7-17) mg/dL Creatinine 1.00 (0.52-1.04) mg/dL Estimated GFR > 60 (>60) mL/min BUN/Creatinine Ratio 23.0 H (6-22) Glucose 143 H (70-100) mg/dL Calcium 10.0 (8.4-10.2) mg/dL Total Bilirubin 1.4 H (0.2-1.3) mg/dL AST 31 (14-36) IU/L ALT 25 (<35) IU/L Alkaline Phosphatase 65 (38-126) U/L Total Protein 7.9 (6.3-8.2) g/dL Albumin 4.8 (3.5-5.0) g/dL Globulin 3.1 (1.7-4.1) g/dL Albumin/Globulin Ratio 1.5 (1.0-2.8) Lipase 132 (23-300) U/L Urine Dip Bedside Urine Glucose Negative Bedside Urine Bilirubin - Negative Bedside Urine Ketone ++ 40 Urine Specific [place] 1.015 Bedside Urine Occult Blood ++ Bedside Urine pH 6.5 Bedside Urine Protein - Negative Bedside Urine Urobilinogen - Negative Bedside Urine Nitrite - Negative Bedside Urine Leukocytes - Negative Esterase Point of care testing: Urine Dip Bedside Urine Glucose Negative Bedside Urine Bilirubin - Negative Bedside Urine Ketone ++ 40 Urine Specific [place] 1.015 Bedside Urine Occult Blood ++ Bedside Urine pH 6.5 Bedside Urine Protein - Negative Bedside Urine Urobilinogen - Negative Bedside Urine Nitrite - Negative Bedside Urine Leukocytes - Negative Esterase MDM Narrative Medical decision making narrative: CC: Left flank pain since 5:00 p.m. tonight Complicating co-morbidities: Rheumatoid arthritis on Enbrel, pain significant enough she is now complaining of bilateral upper extremity tingling and right radicular leg pain. Data collected from: patient Differential considered: Ureterolithiasis, diverticulitis, shingles, back pain Exam documented above, pertinent findings include: Patient is alert and appropriate having difficulty finding a comfortable position with significant left flank pain. Skin exam is reassuring Lab Test results independently reviewed as above. Pertinent findings: CBC is unremarkable Chemistries are notable for normal renal function Urine has squamous cells multiple bacteria no significant red cells Imaging studies independently reviewed: CT KUB shows an obstructive 2 mm stone left side at the ureterovesical junction with subsequent hydronephrosis Treatments: Fluids, Toradol, Zofran Discussion: Patient is doing significantly better after the fluids and Toradol. CT scan was reviewed with her including the 2 mm UVJ level stone on the left side. As it is almost into the bladder, only 2 mm I do not think that tamsulosin is going to be all that beneficial. I have given her a dose of oral Percocet prior to discharge home. We discussed reasons to return to the hospital including uncontrolled pain or infection suggestive of pyelonephritis. If the stone does not pass are she has increasing problems I have suggested that she contact Dr. Cooper, urology for follow up. Questions are answered she is safe for discharge Discharge Plan Departure Patient Disposition: Home Clinical Impression: Ureterolithiasis Instructions: DI for Kidney Stones Activity Restrictions/Additional Instructions: Thank you for coming in today You have a 2 mm stone on the left side that is causing your pain. It is almost ready to drop into the bladder and after that you will not have any difficulty in getting rid of it completely. Using 400 mg of ibuprofen (2 bqcx-yvs-ozmlxly pills) and 1 Tylenol every 6 hours can be very helpful in controlling pain. For severe pain you can use 1 Percocet and 400 mg of ibuprofen. Prescription for oxycodone was transmitted to [facility] expect distal feel achy and sore for at least the next 24 hours. Once the stone gets down to the opening of the bladder it can pass within hours but may take up today's. If you have pain that is not controlled with oral medications or developed a significant fever or new abdominal pain you do need to be re-evaluated in the emergency department If you are continuing to have issues you can follow up with our urologist, Dr. Cooper, the office phone number is [phone]. You can give him a call and let him know that you were seen in the emergency department with a diagnosis of a kidney stone and are continuing had issues. Prescriptions: New oxycodone-acetaminophen 5-325 mg tablet 1 tab PO Q6H PRN (Reason: pain) Qty: 10 0RF No Action estradiol 0.0375 mg/24 hr patch semiweekly 1 patch transdermal 2XW Qty: 24 2RF Rx Instructions: apply 1 patch for 3 days alternating with 1 patch for 4 days each week for 3 wks per 4-wk cycle Enbrel 50 mg/mL (1 mL) syringe 50 mg SUBCUT QWEEK progesterone micronized 100 mg capsule 100 mg PO QAM Qty: 30 1RF Referrals: Laz Paz MD [Primary Care Provider] - Stand Alone Forms: Patient Portal/API
--- NOTE | 2023-10-21 03:12 | DI.CT.S_ITS ---
PROCEDURE: CT KIDNEY URETER BLADDER (KUB) INDICATIONS: left flankl pain TECHNIQUE: Axial sections were acquired from the lung bases to the pubic symphysis. Coronal and sagittal reformats were performed. For radiation dose reduction, the following was used: automated exposure control, adjustment of mA and/or kV according to patient size. COMPARISON: None. FINDINGS: Image quality: Diagnostic. Lower Chest: Bibasilar atelectasis. Heart size is normal. Bilateral breast implants noted. URINARY: Right Kidney: No stones or hydronephrosis. Right Ureter: No hydroureter. Left Kidney/ureter: Mild left hydroureteronephrosis secondary to an obstructing 2 mm stone at the left ureterovesicular junction. Mild perinephric stranding. Bladder: Normal wall thickness. No stones. ABDOMEN: Liver: No contour-deforming solid mass. Gallbladder: Status cholecystectomy. Biliary ducts: No biliary dilation. Pancreas: No ductal dilation. Spleen: Size is within normal limits. Adrenal Glands: No adrenal nodules. Stomach and Bowel: Normal colonic caliber, without significant wall thickening. Scattered colonic diverticula without acute inflammation. Normal appendix. Peritoneum: No abnormal intraperitoneal fluid. No free air. Ventral Wall: No hernia. Abdominal Nodes: No enlarged retroperitoneal or mesenteric lymph nodes. Vessels: Aorta and inferior vena cava are normal in size. PELVIS: Pelvic Organs: Unremarkable. Pelvic Nodes: Unremarkable. Miscellaneous: No inguinal hernias are seen. Bones: Unremarkable. IMPRESSION: Obstructing 2 mm distal left ureteral stone at the ureterovesicular junction with associated left hydroureteronephrosis. Other chronic findings above. No significant discrepancy with the shift supervisor melting radiology preliminary report Dictated by: Juan Antonio Payan M.D. on 10/21/2023 at 7:18 Approved by: Juan Antonio Payan M.D. on 10/21/2023 at 7:27
[2023-10-21] MEDS: SODIUM CHLORIDE 0.9% 1,000 ML 1000 ML IV (03:19)
[2023-10-21] MEDS: KETOROLAC 30 MG/ML VIAL 15 MG IV (03:20)
[2023-10-21] MEDS: ONDANSETRON 4 MG/2 ML INJ IV (03:20)
[2023-10-21 03:24] LABS: RBC Urine 1-5/HPF (0-5/HPF); Urine Volume 10mL (spun); WBC Urine None Seen (0-5/HPF)
[2023-10-21 03:25] LABS: Amorphous Sediment Urine 2+; Bacteria Urine Many (>30); Squamous Epithelial Cell Urine 10-30 /HPF (0-5/HPF)
[2023-10-21 03:26] LABS: Culture Indicated Urine Cult Not Indicated; Mucus Urine 1+ (Negative)
--- NOTE | 2023-10-21 03:36 | PC.NURSE ---
Pt to CT exam
[2023-10-21] MEDS: HYDROMORPHONE 0.5 MG INJ IV (03:49)
--- NOTE | 2023-10-21 03:51 | PC.NURSE ---
Pt continues to c/o pain to left flank. Medicated with PRN for pain.
[2023-10-21] MEDS: OXYCODONE/ACETAMINOPHEN 5/325 TABLET 1 TAB PO (05:12)
== END 2023-10-21 05:46 | disposition home or self-care (01) ==
PROVIDERS: Emergency Provider Emergency Medicine; PCP Family Medicine
DX: N13.2 Hydronephrosis with renal and ureteral calculous obstruction (principal)
CPT/HCPCS: 36415; 74176; 80053; 81003; 81015; 83690; 85025; 93005; 96374; 96375; 99284; J1170; J1885; J2405

== ENCOUNTER → 2024-01-31 12:59 | Outpatient (CLI) | payer OTHER, SELFPAY ==
[2024-01-31 18:54] LABS: Hep C Virus Ab w/Reflex Quant NEGATIVE s/c (NEGATIVE)
== END ==
LOC: LAB 13:02
PROVIDERS: PCP Family Medicine; Visit Provider Physician Assistant Medical
DX: Z79.899 Other long term (current) drug therapy (principal); R68.82 Decreased libido
CPT/HCPCS: 36415; 84402; 84403; 86803

== ENCOUNTER → 2024-04-16 16:57 | Outpatient (CLI) | payer OTHER, SELFPAY ==
--- NOTE | 2024-04-16 16:58 | DI.MG.S_ITS ---
BILATERAL DIGITAL SCREENING MAMMOGRAM 3D/2D WITH CAD WITH AUGMENTATION: 04/16/2024 CLINICAL: Routine screening. Comparison is made to exams dated: 08/27/2022 mammogram, 08/07/2018 mammogram, and 03/18/2016 mammogram - [facility]. The breasts are extremely dense, which lowers the sensitivity of mammography (category d />75% glandular tissue). Current study was also evaluated with a Computer Aided Detection (CAD) system. Bilateral breast implants are stable. No significant masses, calcifications, or other findings are seen in either breast. There has been no significant interval change. IMPRESSION: NEGATIVE There is no mammographic evidence of malignancy. A 1 year screening mammogram is recommended. Based on the Tyrer Cuzick model (a risk assessment model) the patient's lifetime risk is 16.8% and her 10 year risk is 4.7%. According to the ACR, ACS, and NCCN guidelines, an annual breast MRI exam along with mammogram is recommended if the patient's lifetime risk is 20% or greater. This exam was interpreted at Station ID: [id number]. NOTE: For mammograms, a report in lay terms will be sent to the patient. Approximately 15% of breast malignancies will not be visualized mammographically. In the management of a palpable breast mass, a negative mammogram must not discourage biopsy of a clinically suspicious lesion. Electronically Signed By: Juan Manuel carrington/harpreet:04/17/2024 08:51:07 letter sent: Normal Exam ACR BI-RADS Category 1: Negative
== END ==
PROVIDERS: PCP Family Medicine; Referring Provider Family Medicine; Visit Provider Family Medicine
DX: Z12.31 Encounter for screening mammogram for malignant neoplasm of breast (principal); R92.343 Mammographic extreme density, bilateral breasts
CPT/HCPCS: 77063; 77067